=== PATIENT | female | born 1965 | race Caucasian/White ===

== ENCOUNTER → 2024-07-10 08:06 | Outpatient (REF) | payer OTHER, SELFPAY ==
[2024-07-10 08:46] LABS: % Basophils 1.1 % (0-2); % Eosinophils 3.9 % (0-6); % Immature Granulocytes 0.3 % (0-0.5); % Lymphocytes 30.3 % (20.5-51.1); % Neutrophils 56.4 % (42.2-75.2); Absolute Eosinophils 0.1 10^3/uL (0-0.7); Absolute Lymphocytes 1.1 10^3/uL (1.2-3.4); Absolute Monocytes 0.3 10^3/uL (0.1-0.6); Absolute Neutrophils 2.1 10^3/uL (1.4-6.5); Hematocrit 37.8 % (37.0-47.0); Hemoglobin 13.2 g/dL (12.0-16.0); Mean Corp Hgb Conc. 34.9 g/dL (33.0-37.0); Mean Corpuscular Hgb 32.1 pg (27.0-31.0); Mean Platelet Volume 10.4 fL (7.4-10.4); Nucleated Red Blood Cells % 0 %; Platelet Count 175 10^3/uL (130-400); Red Blood Cell Count 4.11 10^6/uL (4.20-5.40); Red Cell Dist. Width 12.9 % (11.5-14.5); White Blood Cell Count 3.6 10^3/uL (4.8-10.8)
[2024-07-10 08:56] LABS: ALT (SGPT) 22 U/L (0-35); AST (SGOT) 25 U/L (14-36); Albumin 4.3 g/dl (3.5-5.0); Alkaline Phosphatase 90 U/L (38-126); Blood Urea Nitrogen 13 mg/dl (7-17); Calcium 9.7 mg/dl (8.4-10.2); Carbon Dioxide 32 mmol/L (22-30); Chloride 102 mmol/L (98-107); Glucose 93 mg/dl (70-99); HDL Cholesterol 62 mg/dl; Iron 166 ug/dl (37-170); LDL Cholesterol, Calculated 117 mg/dl; Magnesium 2.2 mg/dl (1.6-2.3); Potassium 4.4 mmol/L (3.5-5.1); Sodium 144 mmol/L (135-145); Total Bilirubin 0.8 mg/dl (0.2-1.3); Total Cholesterol 210 mg/dl (50-199); Total Protein 6.7 g/dl (6.3-8.2); Triglyceride 155 mg/dl (10-149); Very Low Density Lipoprotein 31 mg/dl (0-30); eGFR > 60.00
[2024-07-10 09:11] LABS: Percent Saturation 61 % (20-50); Total Iron Binding Capacity 270 ug/dl (265-497)
[2024-07-10 09:15] LABS: Free T3 3.92 pg/ml (2.77-5.27); Free T4 0.94 ng/dl (0.78-2.19)
[2024-07-10 09:29] LABS: TSH 2.13 uIU/ml (0.47-4.68)
[2024-07-10 09:33] LABS: Ferritin 44.9 ng/ml (11.1-264.0)
[2024-07-10 10:05] LABS: Folate 6.3 ng/ml (2.76-20); Vitamin B12 513 pg/ml (239-931)
[2024-07-11 18:16] LABS: Thyroid Peroxidase Ab (TPO) 0.5 IU/mL (0.0-9.0)
[2024-07-11 18:17] LABS: Thyroglobulin 10.9 ng/mL (1.3-31.8); Thyroglobulin Antibodies <0.9 IU/mL (0.0-4.0)
== END ==
LOC: REG 08:06
PROVIDERS: ATTENDING PHYSICIAN Physician Assistant
DX: Z00.00 Encounter for general adult medical examination without abnormal findings (principal); E03.9 Hypothyroidism, unspecified; E53.8 Deficiency of other specified B group vitamins; Z78.9 Other specified health status
CPT/HCPCS: 36415; 80053; 80061; 82607; 82728; 82746; 83540; 83550; 83735; 84432; 84439; 84443; 84481; 85025; 86376; 86800

== ENCOUNTER → 2024-08-01 17:15 | Outpatient (REF) | payer OTHER, SELFPAY | LOC: WDC 17:15 | PROVIDERS: ATTENDING PHYSICIAN Physician Assistant | DX: Z12.31 Encounter for screening mammogram for malignant neoplasm of breast (principal) | CPT/HCPCS: 77063; 77067 ==

== ENCOUNTER → 2025-08-16 07:18 | Outpatient (REF) | payer OTHER, SELFPAY ==
[2025-08-16 08:01] LABS: Hematocrit 40.7 % (37.0-47.0); Hemoglobin 13.9 g/dL (12.0-16.0); Mean Corp Hgb Conc. 34.2 g/dL (33.0-37.0); Mean Corpuscular Volume 93.3 fL (81.0-99.0); Nucleated Red Blood Cells % 0 %; Platelet Count 179 10^3/uL (130-400); Red Cell Dist. Width 12.8 % (11.5-14.5)
[2025-08-16 08:26] LABS: Glycohemoglobin (HgbA1c) 5.1 % (4.0-5.9)
[2025-08-16 08:52] LABS: ALT (SGPT) 23 U/L (0-35); AST (SGOT) 25 U/L (14-36); Albumin 4.6 g/dl (3.5-5.0); Alkaline Phosphatase 89 U/L (38-126); Blood Urea Nitrogen 13 mg/dl (7-17); Calcium 9.8 mg/dl (8.4-10.2); Carbon Dioxide 33 mmol/L (22-30); Chloride 102 mmol/L (98-107); Glucose 88 mg/dl (70-99); HDL Cholesterol 54 mg/dl; LDL Cholesterol, Calculated 134 mg/dl; Potassium 4.1 mmol/L (3.5-5.1); Sodium 141 mmol/L (135-145); Total Protein 7.1 g/dl (6.3-8.2); Very Low Density Lipoprotein 18 mg/dl (0-30); eGFR > 60.00
[2025-08-16 09:00] LABS: Vitamin D, 25-OH*** 47.7 ng/mL (30-80)
[2025-08-16 09:46] LABS: Folate 5.4 ng/ml (2.76-20); Vitamin B12 403 pg/ml (239-931)
[2025-08-18 09:21] LABS: ANA, IgG Reflex to HEp-2 None Detected (None Detected)
== END ==
LOC: REG 07:18
PROVIDERS: ATTENDING PHYSICIAN Physician Assistant
DX: Z00.00 Encounter for general adult medical examination without abnormal findings (principal); R53.83 Other fatigue; M79.10 Myalgia, unspecified site
CPT/HCPCS: 36415; 80053; 80061; 82306; 82607; 82746; 83036; 84443; 85025; 86038; 86430; 86618